=== PATIENT | female | born 1980 | race Caucasian/White ===

== ENCOUNTER 2023-10-24 09:57 | Outpatient (CLI) | payer OTHER | END 2023-10-24 10:35 | disposition home or self-care (01) | LOC: NST 09:57 | PROVIDERS: ATTEND Obstetrics & Gynecology | DX: Z34.83 Encounter for supervision of other normal pregnancy, third trimester (principal) ==

== ENCOUNTER 2023-11-22 11:12 | Outpatient (CLI) | payer OTHER | END 2023-11-22 11:55 | disposition home or self-care (01) | LOC: NST 11:12 | PROVIDERS: ATTEND Obstetrics & Gynecology Gynecology | DX: Z34.83 Encounter for supervision of other normal pregnancy, third trimester (principal) ==

== ENCOUNTER 2023-12-26 09:45 | Inpatient (IN) | payer OTHER ==
[~2023-12-26] VITALS: Ht 149.9 cm; Wt 81.2 kg
[2023-12-30 10:36] LABS: HEMATOCRIT 34.1 % (36.0-45.00); HEMOGLOBIN 11.3 g/dL (12.0-15.00); MEAN CELL VOLUME 82.8 fL (80.00-100.00); MEAN CORPUSCULAR HEMOGLOBIN 27.4 pg (27.00-32.0); MEAN CORPUSCULAR HGB CONC 33.1 g/dl (32.0-36.0); PLATELET COUNT 319 K/uL (150-450); RED BLOOD COUNT 4.12 M/uL (4.00-6.00)
[2023-12-30 11:06] LABS: INR < 0.93; PARTIAL THROMBOPLASTIN TIME 29.2 SECONDS (22.0-34.0); PROTHROMBIN TIME 9.8 SECONDS (9.0-11.5)
[2023-12-30 11:21] LABS: ALBUMIN 2.7 gm/dL (3.4-5.0); BILIRUBIN TOTAL 0.22 mg/dL (0.3-1.2); CALCIUM 9.5 mg/dL (8.5-10.1); CREATININE SERUM 0.63 mg/dL (0.55-1.02); GFR 103.14; POTASSIUM 4.09 mEq/L (3.5-5.1); TOTAL PROTEIN 6.7 gm/dL (6.4-8.2)
[2024-01-01] MEDS ORDERED: PRENATE ELITE1 EAC2 PO (06:12)
[2024-01-01] MEDS ORDERED: ERYTHROMYCIN BASE 1 GM TUBE OP ONE ×2 (07:04→12:00)
[2024-01-01] MEDS ORDERED: OXYTOCIN 10 UNITS/ML VIAL ONE ×2 (07:04→09:45)
[2024-01-01] MEDS ORDERED: OXYTOCIN 500 ML IV ONE (08:00)
[2024-01-01] MEDS ORDERED: CEFAZOLIN SODIUM 1,000 MG VIAL ONE (09:43)
[2024-01-01] MEDS ORDERED: CITRIC ACID/SODIUM CITRATE 30 ML BLIST.PACK PO ONE (09:43)
[2024-01-01] MEDS ORDERED: ERYTHROMYCIN BASE 3.5 GM OINT...G. OP ONE (09:46)
[2024-01-01] MEDS ORDERED: CEFAZOLIN SODIUM 1,000 MG VIAL IV SCH (10:00)
[2024-01-01] MEDS ORDERED: CITRIC ACID/SODIUM CITRATE 30 ML BLIST.PACK PO SCH (10:00)
[2024-01-01] MEDS ORDERED: OXYTOCIN 10 UNITS/ML VIAL IV ONE (12:00)
[2024-01-01] MEDS ORDERED: KETOROLAC TROMETHAMINE 30 MG VIAL IV SCH (15:21)
[2024-01-01] MEDS ORDERED: MORPHINE SULFATE 4 MG/ML CARTRIDGE IV SCH (17:00)
[2024-01-02] MEDS ORDERED: ACETAMINOPHEN 500 MG GEL..CAP PO SCH (06:00)
[2024-01-02 07:32] LABS: HEMATOCRIT 29.6 % (36.0-45.00); MEAN CELL VOLUME 82.3 fL (80.00-100.00); MEAN CORPUSCULAR HGB CONC 32.8 g/dl (32.0-36.0); PLATELET COUNT 252 K/uL (150-450); RED BLOOD COUNT 3.59 M/uL (4.00-6.00); RED CELL DISTRIBUTION WIDTH 16.6 % (11.5-14.5)
[2024-01-02 07:33] LABS: HEMOGLOBIN 9.7 g/dL (12.0-15.00)
[2024-01-02] MEDS ORDERED: IBUprofen 600 MG TABLET PO SCH (09:00)
[2024-01-02] MEDS ORDERED: SIMETHICONE 125 MG CAPSULE PO SCH (09:00)
[2024-01-02] MEDS ORDERED: PNV,CALCIUM 72/IRON/FOLIC ACID 1 TAB TABLET PO SCH (09:00)
[2024-01-02] MEDS ORDERED: GABAPENTIN 300 MG CAPSULE PO SCH (09:00)
[2024-01-02] MEDS ORDERED: DOCUSATE SODIUM 100MG CAP PO SCH (09:00)
[2024-01-03] MEDS ORDERED: BISACODYL 10 MG/SUPP.RECT SUPP.RECT RECTAL ONE (08:00)
== END 2024-01-04 15:49 | disposition home or self-care (01) | DRG 785 ==
LOC: OB/GYN 01-01 07:00 → LDR 01-01 07:08 → OB/GYN 01-01 07:08 → O/R 01-01 10:15 → OB/GYN 01-01 13:07
PROVIDERS: ADMIT Obstetrics & Gynecology Gynecology; ATTEND Obstetrics & Gynecology Gynecology
PROC: 0UB70ZZ Excision of Bilateral Fallopian Tubes, Open Approach (ICD-10-PCS; 2024-01-01)
PROC: 0DNW0ZZ Release Peritoneum, Open Approach (ICD-10-PCS; 2024-01-01)
PROC: 4A1HXCZ Monitoring of Products of Conception, Cardiac Rate, External Approach (ICD-10-PCS; 2024-01-01)
PROC: 10D00Z1 Extraction of Products of Conception, Low, Open Approach (ICD-10-PCS; principal; 2024-01-01 07:00)
DX: O34.211 Maternal care for low transverse scar from previous cesarean delivery (principal); Z30.2 Encounter for sterilization; Z3A.39 39 weeks gestation of pregnancy; Z37.0 Single live birth; Z20.822 Contact with and (suspected) exposure to COVID-19

== ENCOUNTER 2023-12-27 10:51 | Outpatient (CLI) | payer OTHER | END 2023-12-27 12:13 | disposition home or self-care (01) | LOC: NST 10:51 | PROVIDERS: ATTEND Obstetrics & Gynecology | DX: Z34.83 Encounter for supervision of other normal pregnancy, third trimester (principal) ==